=== PATIENT | male | born 1960 | race Caucasian/White ===

== ENCOUNTER 2017-03-23 09:25 | Emergency (ER) | payer MEDICAID, MEDICARE ==
[2017-03-23] MEDS ORDERED: Metoprolol Tartrate 25 MG Tab PO ONE (09:33)
[2017-03-23] MEDS ORDERED: Aspirin 81 MG Tab.Chew PO ONE (09:33)
--- NOTE | 2017-03-23 09:39 | EDM.PDOC ---
ED HPI GENERAL MEDICAL PROBLEM - General Chief Complaint: Chest Pain Stated Complaint: CHEST PAIN Time Seen by Provider: 03/23/17 09:25 Source of Information: Reports: Patient, Old Records History Limitations: Reports: Other (poor historian, incomplete records) - History of Present Illness INITIAL COMMENTS - FREE TEXT/NARRATIVE: 57 yo male is sent from the local half-way for 2 days of left sided chest pain. Was taken to the clinic and they directed him to the ER. Exertion seems to make the pain worse. Has coronary stents although not sure how many. Has a spinner cap frame he sees at [facility]. Does not have, nor did he take any NTG. No significant nausea, diaphoresis, or SOB. Onset Date: 03/21/17 Duration: Day(s):, Intermittent Location: Reports: Chest Quality: Reports: Pressure Severity: Moderate Improves with: Reports: Rest Worsens with: Reports: Other (Exertion) Context: Reports: Other (Has known CAD) Associated Symptoms: Reports: Chest Pain, Diaphoresis (? mild at times, not now. ). Denies: Fever/Chills, Shortness of Breath Treatments STATE ATTORNEY: Reports: Other (see below) (none) Left Chest Pain Score (Numeric/FACES): 6 - Related Data Allergies Allergy/AdvReac Type Severity Reaction Status Date / Time metronidazole [From Flagyl] Allergy Swollen Verified 11/27/14 16:51 Tongue Metronidazole HCl Allergy Swollen Verified 11/27/14 16:51 [From Flagyl] Tongue prednisone Allergy Blisters Verified 11/27/14 16:51 turkey Allergy Wheezing Verified 03/23/17 09:27 Home Meds: Home Meds Metoprolol Succinate [Toprol XL] 12.5 mg PO BID 04/19/13 [History] Clopidogrel [Plavix] 1 tab PO DAILY 02/01/17 [History] atorvaSTATin [Lipitor] 1 tab PO DAILY 02/01/17 [History] Citalopram Hydrobromide [Celexa] 20 mg PO DAILY 03/23/17 [History] Nitroglycerin [Nitrostat] 0.4 mg SL ASDIRECTED 03/23/17 [History] Past Medical History HEENT History: Reports: Impaired Vision Cardiovascular History: Reports: CAD, High Cholesterol, Hypertension Respiratory History: Reports: COPD Musculoskeletal History: Reports: Fracture Neurological History: Reports: Brain Injury, Concussion, Migraines Psychiatric History: Reports: Addiction, Anxiety, Depression - Past Surgical History Other Cardiovascular Surgeries/Procedures: stent placed 03/18/15 in 1 vessel. Social & Family History - Tobacco Use Smoking Status *Q: Current Every Day Smoker Years of Tobacco use: 37 Packs/Tins Daily: 1 Used Tobacco, but Quit: No Month Tobacco Last Used: january Second Hand Smoke Exposure: Yes - Caffeine Use Caffeine Use: Reports: Coffee - Alcohol Use Days Per Week of Alcohol Use: 0 - Recreational Drug Use Recreational Drug Use: Yes Drug Use in Last 12 Months: Yes Recreational Drug Type: Reports: Marijuana/Hashish Recreational Drug Use Frequency: Patient Refuses To Answer - Living Situation & Occupation Living situation: Reports: ED ROS GENERAL - Review of Systems Review Of Systems: See Below Constitutional: Reports: No Symptoms HEENT: Reports: No Symptoms Respiratory: Denies: Shortness of Breath, Wheezing, Pleuritic Chest Pain, Cough , Sputum, Hemoptysis Cardiovascular: Reports: Chest Pain, Dyspnea on Exertion (mild). Denies: Claudication, Lightheadedness, Orthopnea, Palpitations GI/Abdominal: Reports: No Symptoms : Reports: No Symptoms Musculoskeletal: Reports: No Symptoms Skin: Reports: Diaphoresis (mild at times, not now) Neurological: Reports: No Symptoms Psychiatric: Reports: No Symptoms ED EXAM, GENERAL - Physical Exam Exam: See Below Exam Limited By: No Limitations General Appearance: Alert, WD/WN Eye Exam: Bilateral Eye: Normal Inspection Ears: Normal External Exam, Normal Canal, Hearing Grossly Normal Ear Exam: Bilateral Ear: Auricle Normal, Canal Normal Nose: Normal Inspection, Normal Mucosa, No Blood Throat/Mouth: Normal Inspection, Normal Lips, Normal Teeth, Normal Oropharynx, Normal Voice, No Airway Compromise Head: Atraumatic, Normocephalic Neck: Normal Inspection Respiratory/Chest: No Respiratory Distress, Lungs Clear, Normal Breath Sounds, No Accessory Muscle Use Cardiovascular: Regular Rate, Rhythm, No Edema GI/Abdominal: Normal Bowel Sounds, Soft, Non-Tender, No Distention Back Exam: Normal Inspection. No: CVA Tenderness (R), CVA Tenderness (L) Extremities: Normal Inspection, Normal Range of Motion, Non-Tender, No Pedal Edema Neurological: Alert, Oriented, CN II-XII Intact, Normal Cognition, No Motor/ Sensory Deficits Psychiatric: Normal Affect, Normal Mood Skin Exam: Warm, Dry, Intact, Normal Color, No Rash Lymphatic: No Adenopathy EKG INTERPRETATION EKG Date: 03/23/17 Time: 09:20 Rhythm: NSR Rate (Beats/Min): 89 [place]: Normal P-Wave: Present QRS: Normal ST-T: Normal QT: Normal Comparison: No Change Course - Vital Signs Text/Narrative:: NTG 0.4 mg SL x 3, no change in sx's. Last Recorded V/S: Last Vital Signs Temp 36.9 C 03/23/17 09:29 Pulse 96 03/23/17 09:49 Resp 20 03/23/17 09:29 BP 103/55 L 03/23/17 09:55 Pulse Ox 100 03/23/17 09:29 - Orders/Labs/Meds Orders: Active Orders 24 hr Category Date Time Status Cardiac Monitoring [RC] .As Directed Care 03/23/17 09:27 Active Sodium Chloride 0.9% [Saline Flush] Med 03/23/17 09:33 Active 10 ml FLUSH ASDIRECTED PRN Saline Lock Insert [OM.PC] Routine Oth 03/23/17 09:33 Ordered EKG 12 Lead [EK] Routine Ther 03/23/17 09:27 Ordered Medication Orders Sodium Chloride (Saline Flush) 10 ml FLUSH ASDIRECTED PRN PRN Reason: Keep Vein Open Last Admin: 03/23/17 10:11 Dose: 10 ml Admin: 03/23/17 09:46 Dose: 10 ml Labs: Laboratory Tests 03/23/17 Range/Units 09:37 Troponin I < 0.01 L (0.02-0.06) NG/ML Meds: Medications Generic Name Dose Route Start Last Admin Trade Name Freq PRN Reason Stop Dose Admin Sodium Chloride 10 ml 03/23/17 09:33 03/23/17 10:11 Saline Flush FLUSH 10 ml ASDIRECTED PRN Administration Keep Vein Open Discontinued Medications Generic Name Dose Route Start Last Admin Trade Name Freq PRN Reason Stop Dose Admin Aspirin 324 mg 03/23/17 09:33 03/23/17 09:44 Aspirin PO 03/23/17 09:34 324 mg ONETIME ONE Administration Ketorolac Tromethamine 30 mg 03/23/17 10:02 03/23/17 10:11 Toradol IVPUSH 03/23/17 10:03 30 mg ONETIME ONE Administration Metoprolol Tartrate 25 mg 03/23/17 09:33 03/23/17 09:49 Lopressor PO 03/23/17 09:34 25 mg ONETIME ONE Administration Nitroglycerin 0.4 mg 03/23/17 09:32 03/23/17 09:55 Nitrostat SL 0.4 mg Q5M PRN Administration Chest Pain Departure - Departure Time of Disposition: 10:35 Disposition: Home, Self-Care 01 Condition: Good Clinical Impression: Chest pain, atypical Referrals: PCP,None [Primary Care Provider] - Forms: ED Department Discharge - My Orders Last 24 Hours: My Active Orders 03/23/17 09:27 Cardiac Monitoring [RC] .As Directed EKG 12 Lead [EK] Routine 03/23/17 09:33 Sodium Chloride 0.9% [Saline Flush] 10 ml FLUSH ASDIRECTED PRN Saline Lock Insert [OM.PC] Routine - Assessment/Plan Last 24 Hours: My Active Orders 03/23/17 09:27 Cardiac Monitoring [RC] .As Directed EKG 12 Lead [EK] Routine 03/23/17 09:33 Sodium Chloride 0.9% [Saline Flush] 10 ml FLUSH ASDIRECTED PRN Saline Lock Insert [OM.PC] Routine
[2017-03-23] MEDS: Nitroglycerin 0.4 MG Tab.SL SL PRN ×3 (09:45→09:55)
[2017-03-23] MEDS: Sodium Chloride 0.9% 10 ML Syringe FLUSH PRN ×2 (09:46→10:11)
[2017-03-23 09:55] VITALS: BP 103/55
[2017-03-23] MEDS ORDERED: Ketorolac 30 MG/ML SDV IVPUSH ONE (10:02)
== END 2017-03-23 10:40 | disposition home or self-care (01) ==
LOC: FB.ED 09:25
DX: R07.89 Other chest pain (principal); E78.00 Pure hypercholesterolemia, unspecified; I25.10 Atherosclerotic heart disease of native coronary artery without angina pectoris; I10 Essential (primary) hypertension; J44.9 Chronic obstructive pulmonary disease, unspecified; G43.909 Migraine, unspecified, not intractable, without status migrainosus; F41.9 Anxiety disorder, unspecified; F32.9 Major depressive disorder, single episode, unspecified; F17.210 Nicotine dependence, cigarettes, uncomplicated; Z88.8 Allergy status to other drugs, medicaments and biological substances; Z91.09 Other allergy status, other than to drugs and biological substances; Z79.899 Other long term (current) drug therapy
CPT/HCPCS: 36415; 84484; 93005; 96374; 99285; A9270; J1885; J7050; 99284